=== PATIENT | female | born 1980 ===

== ENCOUNTER 2019-03-05 18:06 | Emergency (ER) | payer OTHER ==
[2019-03-05 18:35] VITALS: BP 134/96
--- NOTE | 2019-03-05 18:50 | UC ---
Skin Complaint HPI - HPI Summary HPI Summary: 38-year-old woman comes in with chief complaint of a rash. About a week and a half ago patient felt like she had beginning of folliculitis or perineum. She treated with some topical antibiotics. She then got abnormal vaginal discharge which she believed was a yeast infection and she treated with Monistat. The abnormal vaginal discharge is gone now. She reports that the perineal skin rashes gotten worse and she feels like she has a skin infection in that area. It is tender with movement or palpation. No fevers or chills. - History of Current Complaint Chief Complaint: [facility] Time Seen by Provider: 03/05/19 18:39 Stated Complaint: PERSONAL Hx Last Menstrual Period: 3-4 weeks ago Pain Intensity: 6 - Allergy/Home Medications Allergies/Adverse Reactions: Allergies Allergy/AdvReac Type Severity Reaction Status Date / Time Penicillins Allergy Rash Verified 03/05/19 18:35 Home Medications: Home Medications Benzocaine/Resorcin/Aloe/E,A,D [Vagisil Cream] 28 gm TP DAILY 03/05/19 [History Confirmed 03/05/19] Ketoconazole 2 % CREAM (NF) [Nizoral 2% CREAM (NF)] 1 applic TOPICAL DAILY 03/05 [History Confirmed 03/05/19] PMH/Surg Hx/FS Hx/Imm Hx Previously Healthy: Yes - Surgical History Surgical History: Yes Surgery Procedure, Year, and Place: wisdom teeth. left shoulder surgery - Family History Known Family History: Positive: Non-Contributory - Social History Alcohol Use: Rare Substance Use Type: None Smoking Status (MU): Never Smoked Tobacco Review of Systems All Other Systems Reviewed And Are Negative: Yes Constitutional: Positive: Negative Skin: Positive: Other - SEE HPI ENT: Positive: Negative Respiratory: Positive: Negative Cardiovascular: Positive: Negative Gastrointestinal: Positive: Negative Genitourinary: Negative: Dysuria, Vaginal/Penile Discharge Motor: Positive: Negative Neurovascular: Positive: Negative Musculoskeletal: Positive: Negative Neurological: Positive: Negative Psychological: Positive: Negative Is Patient Immunocompromised?: No Physical Exam Triage Information Reviewed: Yes Appearance: Well-Appearing, No Pain Distress, Well-Nourished Vital Signs: Initial Vital Signs Temp 98.3 F 03/05/19 18:32 Pulse 85 03/05/19 18:32 Resp 14 03/05/19 18:32 BP 134/96 03/05/19 18:32 Pulse Ox 100 03/05/19 18:32 Vital Signs Reviewed: Yes Eye Exam: Normal Eyes: Positive: Conjunctiva Clear Neck: Positive: Supple Respiratory: Positive: No respiratory distress Cardiovascular: Positive: RRR Musculoskeletal: Positive: Strength Intact, ROM Intact Neurological: Positive: Alert, Muscle Tone Normal Psychological: Positive: Age Appropriate Behavior Skin: Positive: Other - In the perineal leg. It's primarily on the right and on the suprapubic area there is multiple areas of inflamed folliculitis. There is some confluence in the right leg folded the perineum. There is no streaking. No drainage. Course/Dx - Course Course Of Treatment: The perineal and suprapubic rash is consistent with folliculitis. There is minimal confluent erythema. We'll treat with Keflex 500 mg by mouth 4 times a day and also topical mupirocin. Patient does have a reaction to penicillins however she is told me that she is taking Keflex in the past without any problems. We discussed that if she got worse this infection spread she needed to be reevaluated emergency department. - Diagnoses Provider Diagnosis: Folliculitis Discharge ED - Sign-Out/Discharge Documenting (check all that apply): Patient Departure All imaging exams completed and their final reports reviewed: No Studies - Discharge Plan Condition: Stable Disposition: HOME Prescriptions: Cephalexin CAP* [Keflex CAP*] 500 mg PO QID #38 cap Fluconazole 150 MG TAB* [Diflucan 150 MG TAB*] 150 mg PO ONCE #2 tablet Patient Education Materials: Folliculitis (ED) Referrals: Bertrand Madsen MD [Primary Care Provider] - Additional Instructions: FOLLOW UP WITH YOUR DOCTOR IF NOT COMPLETELY IMPROVED. GO TO THE EMERGENCY DEPARTMENT IF YOUR CONDITION WORSENS; PAIN, FEVER, YOU FEEL ILL, SPREAD OF INFECTION OR ANY QUESTIONS OR CONCERNS. - Billing Disposition and Condition Condition: STABLE Disposition: Home
[2019-03-05] MEDS ORDERED: Mupirocin 2% OINT* TUBE TOPICAL ONE (18:58)
[2019-03-05] MEDS ORDERED: Cephalexin CAP* 500 MG PO ONE ×2 (18:59)
== END 2019-03-05 19:14 | disposition home or self-care (01) ==
LOC: UCEAST 18:06
DX: L73.9 Follicular disorder, unspecified (principal); Z88.0 Allergy status to penicillin
CPT/HCPCS: 99203; A9270-GY; G0463